=== PATIENT | female | born 1970 | race Caucasian/White ===

== ENCOUNTER 2017-06-07 22:32 | Emergency (ER) | payer OTHER ==
[~2017-06-07] VITALS: Ht 162.6 cm; Wt 88.7 kg
[~2017-06-07 22:32] MED LIST: CELEXA PO; CONCERTA54 MG PO; CYANOCOBAL1000 MCG/2 IM; MOTRIN800 MG PO; VICODIN 5-3001 EACH PO; ZITHROMAX Z-PA250 MG PO
[2017-06-08 00:39] VITALS: BP 189/94
== END 2017-06-08 00:41 | disposition home or self-care (01) ==
LOC: EME 22:32
PROC: 0HQFXZZ Repair Right Hand Skin, External Approach (ICD-10-PCS; principal; 2017-06-07)
DX: S61.411A Laceration without foreign body of right hand, initial encounter (principal); W25.XXXA Contact with sharp glass, initial encounter; Y93.G1 Activity, food preparation and clean up
CPT/HCPCS: 99281; 99283